=== PATIENT | female | born 1930 | race Caucasian/White ===

== ENCOUNTER 2016-10-16 13:56 | Emergency (ER) | payer MEDICARE, BC ==
[2016-10-16] MEDS ORDERED: CEFTRIAXONE 1 GM VIAL ONE (18:47)
[2016-10-16] MEDS ORDERED: SODIUM CHLORIDE 0.9% 100 ML IV ONE (18:47)
== END 2016-10-16 19:54 | disposition home or self-care (01) ==
LOC: ER 13:56
DX: R42 Dizziness and giddiness (principal); N30.00 Acute cystitis without hematuria; L30.4 Erythema intertrigo
CPT/HCPCS: 36415; 70450; 71010; 80053; 80061; 81001; 82553; 82947; 84484; 85025; 85384; 85610; 85730; 87077; 87088; 87186; 93005; 96365; 99285; J0696